=== PATIENT | male | born 1935 | race Caucasian/White ===

== ENCOUNTER 2016-08-26 16:09 | Observation (INO) ==
[2016-08-26 16:36] LABS: Basophils % 0.2 %; Immature Granulocytes % 0.4 % (0-4); Lymphocytes # 1.1 K/mcL (0.6-4.6); Lymphocytes % 9.5 %; Mean Corpuscular HGB Conc 34.9 g/dL (31.6-35.5); Mean Corpuscular Hemoglobin 31.3 pg (28.0-33.3); Mean Corpuscular Volume 89.6 fL (83.0-100.0); Monocytes # 1.4 K/mcL (0.0-1.3); Monocytes % 12.1 %; Neutrophils # 8.8 K/mcL (1.6-8.9); Platelet Count 107 K/mcL (140-400); Red Cell Distribution Width 13.1 % (11.5-14.5); Segmented Neutrophils % 77.8 %
[2016-08-26 16:39] LABS: ABG Base Excess -3.7 mEq/L (-2.0 to 3.0); ABG HCO3 20.3 mEQ/L (21-27); ABG PCO2 29 mmHg (35-45); ABG PH 7.45 pH Units (7.32-7.45); ABG PO2 64 mmHg (85-104); ABG TCO2 21.2 mEq/L (20-26)
[2016-08-26 16:40] LABS: ABG Oxygen Saturation 94 % (95-98)
--- NOTE | 2016-08-26 16:40 | Emergency Department Note ---
Disposition Clinical Impression: Dehydration Disposition: Admitted As Inpatient Condition: Good Referrals: Angelo Weir DO [Primary Care Provider] - Time of Disposition: 17:35 Altered Mental Status HPI - General Chief Complaint: ED Altered Mental Status Stated Complaint: low o2 sat Source: patient, family, EMS - History of Present Illness HPI Narrative: Patient presents to the emergency department for evaluation of generalized weakness. Spouse states that yesterday while they were riding in a car he began to complain of some epigastric discomfort and appeared to be somewhat diaphoretic. She states that they then went home he slept throughout most of the day. She states that he seemed to be somewhat confused throughout the afternoon yesterday though when specifically asked she states that he was always alert and oriented to person place and time though seemed to be somewhat generally weak. The symptoms persisted today as well. Patient complains of no pain at this time. He is alert and oriented to person place and time no he is somewhat slow to answer my questions. He denies headache or neck pain. He follows all commands appropriately. Patient and spouse denied any new medications. Spouse states that several days ago he was outside working quite a bit in the heat that he seemed to feel well that evening. - Related Data Home Medications Medication Instructions Recorded Confirmed Atenolol [Tenormin] 25 mg PO DAILY 08/26/16 08/26/16 Donepezil HCl [Aricept] 10 mg PO HS 08/26/16 08/26/16 Lisinopril [Zestril] 10 mg PO DAILY 08/26/16 08/26/16 Multivitamin [Multi-Day Vitamins] 1 each PO DAILY 08/26/16 08/26/16 [place]-3/Dha/Epa/Fish Oil [Fish Oil 2 each PO BID 08/26/16 08/26/16 1,000 mg Softgel] Rosuvastatin Calcium [Crestor] 5 mg PO DAILY 08/26/16 08/26/16 Allergies Allergy/AdvReac Type Severity Reaction Status Date / Time atorvastatin Allergy See Verified 08/26/16 16:41 Comments lovastatin Allergy Cramping Verified 08/26/16 16:41 of the Muscles rosuvastatin [From Crestor] Allergy Cramping Verified 08/26/16 16:41 of the Muscles Constitutional: Reports: weakness. Denies: fever, chills Eyes: Denies: eye pain, vision change ENT ED: Denies: ear pain Cardiovascular: Denies: chest pain, orthopnea, edema, syncope Respiratory: Denies: cough, dyspnea, wheezes, hemoptysis Gastrointestinal: Reports: abdominal pain (Yesterday the resolved currently). Denies: nausea, vomiting, diarrhea Genitourinary: Denies: urgency, dysuria, frequency, hematuria Musculoskeletal: Denies: back pain, neck pain Integumentary: Denies: rash Neurological: Denies: headache, numbness, paresthesias, confusion Psychiatric: Denies: anxiety, depression Endocrine: Denies: fatigue Allergic/Immunologic: Denies: urticaria, itchy eyes Past Medical History - Past Medical History Medical history: Reports: hyperlipidemia, hypertension Surgical history: Reports: cholecystectomy, other (Spouse states that he had a "brain bleed." By description sounds as if he had traumatic epidural hematoma that was surgically drained.) Psychiatric history: Reports: no psych history - Social History Smoking Status: Former smoker Smokeless Tobacco Status: No Alcohol use: Reports: none Drug use: Reports: none Physical Exam - General General appearance: alert, in no apparent distress - Head Head exam: atraumatic, normocephalic - Eye Eye exam: Present: normal appearance, PERRL, EOMI. Absent: scleral icterus - ENT ENT exam: mucous membranes dry, TM's normal bilaterally - Neck Neck exam: Present: normal inspection, full ROM. Absent: meningismus - Respiratory Respiratory exam: Present: normal lung sounds bilaterally - Cardiovascular Cardiovascular exam: Present: regular rate, normal rhythm, normal heart sounds - Abdominal Exam Abdominal exam: Present: soft, Non-Tender, normal bowel sounds. Absent: tenderness, distention, guarding, rebound, rigidity - Extremities Exam Extremities exam: Present: normal inspection, full ROM, normal capillary refill. Absent: tenderness, pedal edema, calf tenderness - Expanded Lower Extremity Exam Neurovascular/Tendon exam: Present: normal capillary refill. Absent: pulse deficit, motor deficit, sensory deficit - Back Exam Back exam: Absent: tenderness - Neurological Exam Neurological exam: Present: alert, oriented X3, CN II-XII intact. Absent: motor sensory deficit - Psychiatric Psychiatric exam: Present: normal affect, normal mood - Skin Skin exam: Present: warm, dry, intact, normal color Course Vital Signs Temperature 100.2 F H 08/26/16 16:13 Pulse Rate 77 08/26/16 16:13 Respiratory Rate 18 08/26/16 16:13 Blood Pressure 136/61 08/26/16 16:13 O2 Sat by Pulse Oximetry 95 08/26/16 16:13 Temperature 100.2 F H 08/26/16 16:13 Pulse Rate 77 08/26/16 17:10 Respiratory Rate 18 08/26/16 17:10 Blood Pressure 150/73 08/26/16 17:10 O2 Sat by Pulse Oximetry 94 08/26/16 17:10 Oxygen Delivery Oxygen Delivery Room Air Altered Mental Status - MDM Narrative Medical decision making narrative: Time 5:30 PM: Heart rate is 77, blood pressure 150/73, SPO2 is 97% on room air. Patient is resting comfortably alert oriented and appropriate without complaints. Continues to deny chest pain or shortness of breath. He has a normal neurologic exam. Laboratory evaluation reveals mild dehydration. He has a benign abdominal exam. Patient be admitted to the hospitalist service for ongoing evaluation and treatment. I discussed the case with Dr. Tirso Leon, he accepted the patient to this facility for ongoing evaluation and treatment. Secondary to his low-grade fever and slight lactic acidosis, he will be given Zosyn pending culture results. - Lab Data Lab results reviewed: Yes I reviewed the patient's lab results. Result diagrams: 08/26/16 16:20 08/26/16 16:20 Lab Results 08/26/16 08/26/16 08/26/16 Range/Units 16:18 16:20 16:20 WBC (4.3-11.1) K/mcL RBC (4.19-5.50) M/mcL Hgb (12.9-16.9) g/dL Hct (37.5-50.1) % MCV (83.0-100.0) fL MCH (28.0-33.3) pg MCHC (31.6-35.5) g/dL RDW (11.5-14.5) % Plt Count (140-400) K/mcL MPV (9.4-12.4) fL Immature Gran % (0-4) % Seg Neutrophils % % Lymphocytes % % Monocytes % % Eosinophils % % Basophils % % Neutrophils # (1.6-8.9) K/mcL Lymphocytes # (0.6-4.6) K/mcL Monocytes # (0.0-1.3) K/mcL Eosinophils # (0.0-0.6) K/mcL Basophils # (0.0-0.2) K/mcL PT 16.3 H (9.4-12.1) Seconds INR 1.5 APTT 37.2 H (26.0-36.0) Seconds ABG pH (7.32-7.45) pH Units ABG pCO2 (35-45) mmHg ABG pO2 (85-104) mmHg ABG HCO3 (21-27) mEQ/L ABG Total CO2 (20-26) mEq/L ABG O2 Saturation (95-98) % ABG Base Excess (-2.0 to 3.0) mEq/L Blood Gas Modality Sodium (136-145) mEq/L Potassium (3.5-4.5) mEq/L Chloride (98-109) mEq/L Carbon Dioxide (19-29) mEq/L BUN (8-26) mg/dL Creatinine (0.72-1.25) mg/dL Est GFR ( Amer) (> 60) Est GFR (Non-Af Amer) (> 60) BUN/Creatinine Ratio (6-26) Glucose (70-99) mg/dL Calculated Osmolality (280-300) Calcium (8.6-10.8) mg/dL Total Bilirubin 1.6 H (0.2-1.2) mg/dL Direct Bilirubin 0.6 H (0.0-0.5) mg/dL Indirect Bilirubin 1.0 (0.0-1.2) mg/dL AST 18 (5-34) Units/L ALT 20 (0-55) Units/L Alkaline Phosphatase 49 (38-126) Units/L Ammonia (18-72) mcmol/L Troponin I (0-0.03) ng/mL B-Natriuretic Peptide (0-100) pg/mL Serum Total Protein 6.5 (6.0-8.3) g/dL Albumin 3.6 (3.5-5.0) g/dL Globulin 2.9 (2.4-3.5) g/dL Albumin/Globulin Ratio 1.2 (1.1-2.2) Lipase 30 (8-78) Units/L Urine Color Dark Yellow (Yellow) Urine Clarity Clear (Clear) Urine pH 5.0 (5.0-8.0) pH Units Ur Specific [place] >= 1.030 H (1.010-1.025) Urine Protein 100 H (Neg-Trace) mg/dL Urine Glucose (UA) Normal (Normal) mg/dL Urine Ketones Trace H (Negative) mg/dL Urine Blood Moderate H (Negative) Urine Nitrite Negative (Negative) Urine Bilirubin Small H (Negative) Urine Urobilinogen Normal (Normal) mg/dL Ur Leukocyte Esterase Negative (Negative) 08/26/16 08/26/16 08/26/16 Range/Units 16:20 16:20 16:20 WBC 11.3 H (4.3-11.1) K/mcL RBC 4.80 (4.19-5.50) M/mcL Hgb 15.0 (12.9-16.9) g/dL Hct 43.0 (37.5-50.1) % MCV 89.6 (83.0-100.0) fL MCH 31.3 (28.0-33.3) pg MCHC 34.9 (31.6-35.5) g/dL RDW 13.1 (11.5-14.5) % Plt Count 107 L (140-400) K/mcL MPV 13.0 H (9.4-12.4) fL Immature Gran % 0.4 (0-4) % Seg Neutrophils % 77.8 % Lymphocytes % 9.5 % Monocytes % 12.1 % Eosinophils % 0.0 % Basophils % 0.2 % Neutrophils # 8.8 (1.6-8.9) K/mcL Lymphocytes # 1.1 (0.6-4.6) K/mcL Monocytes # 1.4 H (0.0-1.3) K/mcL Eosinophils # 0.0 (0.0-0.6) K/mcL Basophils # 0.0 (0.0-0.2) K/mcL PT (9.4-12.1) Seconds INR APTT (26.0-36.0) Seconds ABG pH (7.32-7.45) pH Units ABG pCO2 (35-45) mmHg ABG pO2 (85-104) mmHg ABG HCO3 (21-27) mEQ/L ABG Total CO2 (20-26) mEq/L ABG O2 Saturation (95-98) % ABG Base Excess (-2.0 to 3.0) mEq/L Blood Gas Modality Sodium 138 (136-145) mEq/L Potassium 4.6 H (3.5-4.5) mEq/L Chloride 106 (98-109) mEq/L Carbon Dioxide 22 (19-29) mEq/L BUN 22 (8-26) mg/dL Creatinine 1.64 H (0.72-1.25) mg/dL Est GFR ( Amer) 49 L (> 60) Est GFR (Non-Af Amer) 41 L (> 60) BUN/Creatinine Ratio 13 (6-26) Glucose 125 H (70-99) mg/dL Calculated Osmolality 291 (280-300) Calcium 10.5 (8.6-10.8) mg/dL Total Bilirubin (0.2-1.2) mg/dL Direct Bilirubin (0.0-0.5) mg/dL Indirect Bilirubin (0.0-1.2) mg/dL AST (5-34) Units/L ALT (0-55) Units/L Alkaline Phosphatase (38-126) Units/L Ammonia (18-72) mcmol/L Troponin I (0-0.03) ng/mL B-Natriuretic Peptide 136 H (0-100) pg/mL Serum Total Protein (6.0-8.3) g/dL Albumin (3.5-5.0) g/dL Globulin (2.4-3.5) g/dL Albumin/Globulin Ratio (1.1-2.2) Lipase (8-78) Units/L Urine Color (Yellow) Urine Clarity (Clear) Urine pH (5.0-8.0) pH Units Ur Specific [place] (1.010-1.025) Urine Protein (Neg-Trace) mg/dL Urine Glucose (UA) (Normal) mg/dL Urine Ketones (Negative) mg/dL Urine Blood (Negative) Urine Nitrite (Negative) Urine Bilirubin (Negative) Urine Urobilinogen (Normal) mg/dL Ur Leukocyte Esterase (Negative) 08/26/16 08/26/16 08/26/16 Range/Units 16:20 16:20 16:32 WBC (4.3-11.1) K/mcL RBC (4.19-5.50) M/mcL Hgb (12.9-16.9) g/dL Hct (37.5-50.1) % MCV (83.0-100.0) fL MCH (28.0-33.3) pg MCHC (31.6-35.5) g/dL RDW (11.5-14.5) % Plt Count (140-400) K/mcL MPV (9.4-12.4) fL Immature Gran % (0-4) % Seg Neutrophils % % Lymphocytes % % Monocytes % % Eosinophils % % Basophils % % Neutrophils # (1.6-8.9) K/mcL Lymphocytes # (0.6-4.6) K/mcL Monocytes # (0.0-1.3) K/mcL Eosinophils # (0.0-0.6) K/mcL Basophils # (0.0-0.2) K/mcL PT (9.4-12.1) Seconds INR APTT (26.0-36.0) Seconds ABG pH 7.45 (7.32-7.45) pH Units ABG pCO2 29 L (35-45) mmHg ABG pO2 64 L (85-104) mmHg ABG HCO3 20.3 L (21-27) mEQ/L ABG Total CO2 21.2 (20-26) mEq/L ABG O2 Saturation 94 L (95-98) % ABG Base Excess -3.7 L (-2.0 to 3.0) mEq/L Blood Gas Modality Room Air Sodium (136-145) mEq/L Potassium (3.5-4.5) mEq/L Chloride (98-109) mEq/L Carbon Dioxide (19-29) mEq/L BUN (8-26) mg/dL Creatinine (0.72-1.25) mg/dL Est GFR ( Amer) (> 60) Est GFR (Non-Af Amer) (> 60) BUN/Creatinine Ratio (6-26) Glucose (70-99) mg/dL Calculated Osmolality (280-300) Calcium (8.6-10.8) mg/dL Total Bilirubin (0.2-1.2) mg/dL Direct Bilirubin (0.0-0.5) mg/dL Indirect Bilirubin (0.0-1.2) mg/dL AST (5-34) Units/L ALT (0-55) Units/L Alkaline Phosphatase (38-126) Units/L Ammonia 19 (18-72) mcmol/L Troponin I 0.02 (0-0.03) ng/mL B-Natriuretic Peptide (0-100) pg/mL Serum Total Protein (6.0-8.3) g/dL Albumin (3.5-5.0) g/dL Globulin (2.4-3.5) g/dL Albumin/Globulin Ratio (1.1-2.2) Lipase (8-78) Units/L Urine Color (Yellow) Urine Clarity (Clear) Urine pH (5.0-8.0) pH Units Ur Specific [place] (1.010-1.025) Urine Protein (Neg-Trace) mg/dL Urine Glucose (UA) (Normal) mg/dL Urine Ketones (Negative) mg/dL Urine Blood (Negative) Urine Nitrite (Negative) Urine Bilirubin (Negative) Urine Urobilinogen (Normal) mg/dL Ur Leukocyte Esterase (Negative) ITS Impressions Chest X-Ray 08/26/16 16:18 IMPRESSION: No acute abnormalities detected. D/ / Adi Alexis MD / Adi Alexis MD Interpreting Provider: Adi Alexis MD Head CT 08/26/16 16:20 IMPRESSION: No acute intracranial abnormality. D/ / Marcello Bustillo MD / Marcello Bustillo MD Interpreting Provider: Marcello Bustillo MD - Radiology Data Radiology results reviewed: Yes I reviewed the patient's radiology results. - EKG Data EKG attestation: Yes I reviewed and interpreted this EKG. EKG shows normal: sinus rhythm (Sinus rhythm at a rate of 70 with sinus arrhythmia. Nonspecific changes without evidence of acute ST segment or T-wave change) TPA Checklist - LKW: 3-4.5 hrs Add. Warnings/Precautions Patient/family understanding: The patient/family members have been counseled and understood the risk, benefit , and alternatives of treatment.
[2016-08-26 16:42] LABS: INR 1.5; Prothrombin Time 16.3 Seconds (9.4-12.1)
[2016-08-26 16:45] LABS: Activated Partial Thrombo Time 37.2 Seconds (26.0-36.0)
[2016-08-26 16:50] LABS: Calcium 10.5 mg/dL (8.6-10.8); Potassium 4.6 mEq/L (3.5-4.5)
[2016-08-26 16:55] LABS: Albumin 3.6 g/dL (3.5-5.0); Albumin/Globulin Ratio 1.2 (1.1-2.2); Bilirubin,Direct 0.6 mg/dL (0.0-0.5); Bilirubin,Total 1.6 mg/dL (0.2-1.2); Globulin 2.9 g/dL (2.4-3.5); Total Protein 6.5 g/dL (6.0-8.3)
[2016-08-26 17:13] LABS: Bilirubin,Urine Small (Negative); Blood,Urine Moderate (Negative); Clarity,Urine Clear (Clear); Glucose,Urine (UA) Normal (Normal); Ketones,Urine Trace mg/dL (Negative); Leukocyte Esterase,Urine Negative (Negative); Nitrite,Urine Negative (Negative); Protein,Urine 100 mg/dL (Neg-Trace); Specific Gravity,Urine >= 1.030 (1.010-1.025); Urobilinogen,Urine Normal (Normal)
[2016-08-26 17:14] LABS: Color,Urine Dark Yellow (Yellow)
[2016-08-26 17:35] LABS: Amorphous Sediment,Urine Moderate (Few); Bacteria,Urine Many per hpf (None-Few); Granular Casts,Urine Few per lpf (None Seen); Mucus,Urine Many (Few); Squamous Epithelial Cell,Urine Few per lpf (None-Few); WBC,Urine 0-3 per hpf (0-3)
[2016-08-26] MEDS ORDERED: Piperacillin/Tazobactam 3.375 GM in D5% in Water (Mini-Bag+) 100 ML IVPB ONE (17:36)
[2016-08-26] MEDS: 0.9 % Sodium Chloride 1,000 ML IVC SCH (17:57)
[2016-08-26] MEDS ORDERED: Piperacillin/Tazobactam 3.375 GM in D5% in Water (Mini-Bag+) 100 ML IVPB SCH ×2 (18:00)
[2016-08-26] MEDS: (Omega-3/Dha/Epa/Fish Oil [Fish Oil 1,000 Mg Softgel]) PO SCH (21:12)
[2016-08-27] MEDS: Acetaminophen 325 MG TABLET PO PRN ×2 (01:07→08:06)
[2016-08-27] MEDS: Piperacillin/Tazobactam 3.375 GM in D5% in Water (Mini-Bag+) 100 ML IVPB SCH ×3 (02:36→18:40)
[2016-08-27 05:18] LABS: Basophils % 0.2 %; Hemoglobin 13.3 g/dL (12.9-16.9); Immature Granulocytes % 0.7 % (0-4); Lymphocytes # 1.5 K/mcL (0.6-4.6); Lymphocytes % 14.5 %; Mean Corpuscular HGB Conc 34.1 g/dL (31.6-35.5); Mean Corpuscular Hemoglobin 30.4 pg (28.0-33.3); Mean Corpuscular Volume 89.2 fL (83.0-100.0); Monocytes % 9.2 %; Neutrophils # 7.8 K/mcL (1.6-8.9); Platelet Count 102 K/mcL (140-400); Red Blood Count 4.37 M/mcL (4.19-5.50); Red Cell Distribution Width 13.1 % (11.5-14.5); Segmented Neutrophils % 75.4 %
[2016-08-27 05:36] LABS: Albumin 2.9 g/dL (3.5-5.0); Calcium 9.9 mg/dL (8.6-10.8); Phosphorous 2.1 mg/dL (2.3-4.7); Potassium 4.6 mEq/L (3.5-4.5); Potassium 4.7 mEq/L (3.5-4.5)
[2016-08-27] MEDS: (Omega-3/Dha/Epa/Fish Oil [Fish Oil 1,000 Mg Softgel]) PO SCH ×2 (08:00→21:48)
[2016-08-27] MEDS: Multivit/Ca/Min/Fe/FA 1 TAB TABLET PO SCH (08:05)
[2016-08-27] MEDS: 0.9 % Sodium Chloride 1,000 ML IVC SCH (08:18)
[2016-08-27] MEDS ORDERED: NON-FORMULARY MEDICATION 1 EACH EACH (Rosuvastatin Calcium [Crestor] 5 MG) PO SCH (09:00)
[2016-08-27 09:07] LABS: Bilirubin,Urine Small (Negative); Blood,Urine Trace-lysed (Negative); Clarity,Urine Slightly Cloudy (Clear); Color,Urine Dark Yellow (Yellow); Glucose,Urine (UA) Normal (Normal); Ketones,Urine Negative (Negative); Leukocyte Esterase,Urine Negative (Negative); Nitrite,Urine Negative (Negative); Protein,Urine 100 mg/dL (Neg-Trace); Specific Gravity,Urine >= 1.030 (1.010-1.025); Urobilinogen,Urine Normal (Normal)
[2016-08-27 09:43] LABS: Amorphous Sediment,Urine Few (Few); Bacteria,Urine Few per hpf (None-Few); Granular Casts,Urine Few per lpf (None Seen); Hyaline Casts,Urine Few per lpf (None-Few); Mucus,Urine Few (Few); Squamous Epithelial Cell,Urine Few per lpf (None-Few); WBC,Urine 0-3 per hpf (0-3)
--- NOTE | 2016-08-27 11:01 | Internal Med History&Physical ---
Date of Encounter: 08/27/16 Time of Encounter: 10:54 Assessment and Plan (1) Gram-negative bacteremia Current visit: Yes Status: Acute Pt with GNR bacteremia in 2/2 cultures along with sepsis. His exam is benign outside of abdominal tenderness and mild involuntary guarding. No rebound. Pt remains febrile. His portable CXR and head CT were benign. + mild lactic acidosis. There is no evidence of head/neck infection, pneumonia, skin infection , or UTI. Will continue pip/tazo, repeat lactic acid, repeat blood cultures, obtain 2v CXR, and order renal-dosed STAT CT abd/pelvis with IV and PO contrast given concern for intra-abdominal etiology. There is no evidence perforation or surgical abdomen at this time. Radiologist is aware of mild ARF and need for IV contrast in this study. Pt has been receiving IVFs overnight. Patient and family are aware of plan. (2) Acute renal failure Current visit: Yes Status: Acute Mild. Resolving. Will continue IVFs and monitor. Qualifiers: Acute renal failure type: unspecified Qualified Code(s): N17.9 - Acute kidney failure, unspecified (3) Lactic acidosis Current visit: Yes Status: Acute (4) Sepsis Current visit: Yes Status: Acute Qualifiers: Sepsis type: Escherichia coli Qualified Code(s): A41.51 - Sepsis due to Escherichia coli [E. coli] (5) Altered mental status Current visit: No Status: Acute No focal exam. Etiology likely underlying infection. Will monitor. Qualifiers: Altered mental status type: somnolence Qualified Code(s): R40.0 - Somnolence (6) Dehydration Current visit: Yes Status: Acute Internal Medicine - H&P: HPI Chief complaint: AMS, abdominal pain Admitted From: Emergency Dept Plans for Post Hospital Care: Home History of present illness: Mr. Pemberton is a 80 year old male that presented to ED yesterday with 1 day history of abdominal discomfort and sedation. Family notes that patient rarely complains about pain or not feeling well. He began to note an upset stomach with some abdominal pain when asked, but continued to state that he felt fine and did not want to go to the ED for evaluation. He became progressively drowsy and not acting like himself. Patient was denying cough, colored sputum, change in BMs, rash, urinary burning, ear, throat, or sinus pain, or rash. On the next day, family had patient taken to ED for evaluation. Patient was found to have ARF and low grade fever in ED. Portable CXR and UA benign. Blood cultures sent. Pt was placed on IVFs and pip/tazo and admitted to the med-surg unit for further evaluation. Upon evaluation this AM, pt states that he feels fine. He continues to remain sedated and drowsy. Family notes that he is not acting like his normal self. Past Med Surg Social Fam HX - Past Medical History Medical history: hyperlipidemia, hypertension Psychiatric history: no psych history - Past Surgical History Surgical History: cholecystectomy, other - Social History Smoking Status: Former smoker Smokeless Tobacco Status: No Alcohol use: none Drug use: none Internal Medicine - H&P: Meds Atenolol [Tenormin] 25 mg PO DAILY 08/26/16 [History] Donepezil HCl [Aricept] 10 mg PO HS 08/26/16 [History] Lisinopril [Zestril] 10 mg PO DAILY 08/26/16 [History] Multivitamin [Multi-Day Vitamins] 1 each PO DAILY 08/26/16 [History] [place]-3/Dha/Epa/Fish Oil [Fish Oil 1,000 mg Softgel] 2 each PO BID 08/26/16 [ History] Rosuvastatin Calcium [Crestor] 5 mg PO DAILY 08/26/16 [History] Allergies atorvastatin Allergy (Verified 08/26/16 16:41) See Comments myalgia lovastatin Allergy (Verified 08/26/16 16:41) Cramping of the Muscles rosuvastatin [From Crestor] Allergy (Verified 08/26/16 16:41) Cramping of the Muscles All Systems PM: A 10-system review of systems was performed and is negative for pertinent findings except as documented above in the HPI. - Constitutional Vitals: Temp Pulse Resp BP Pulse Ox 100.3 F H 69 22 125/64 98 08/27/16 06:30 08/27/16 06:30 08/27/16 06:30 08/27/16 06:30 08/27/16 08:24 Exam: Gen: Lying in bed, NAD HEENT: NC, AT Neck: Trachea midline, no mass Pulm: No respiratory distress, CTAB CV: Normal S1 and S2, RRR Abdomen: Soft, ND, + generalized tenderness throughout without rebound, + mild involuntary guarding Ext: No C/C/E Neuro: No appreciable motor/sensor deficits Skin: Warm and dry, no rash Psych: drowsy, Ox3 Internal Med - H&P Results - Labs CBC & Chem 7: 08/27/16 04:52 08/27/16 04:52 Labs: Short CBC 08/27/16 Range/Units 04:52 WBC 10.3 (4.3-11.1) K/mcL Hgb 13.3 D (12.9-16.9) g/dL Hct 39.0 (37.5-50.1) % Plt Count 102 L (140-400) K/mcL Neutrophils # 7.8 (1.6-8.9) K/mcL BMP 08/27/16 08/27/16 04:52 04:52 Sodium 139 140 Potassium 4.6 H 4.7 H Chloride 107 107 Carbon Dioxide 23 23 BUN 25 25 Creatinine 1.52 H 1.57 H Glucose 118 H 120 H Calcium 9.9 10.0 Liver Function 08/27/16 Range/Units 04:52 Albumin 2.9 L (3.5-5.0) g/dL Urine 08/27/16 Range/Units 09:00 Urine Color Dark Yellow (Yellow) Urine Clarity Slightly Cloudy A (Clear) Urine pH 5.0 (5.0-8.0) pH Units Ur Specific [place] >= 1.030 H (1.010-1.025) Urine Protein 100 H (Neg-Trace) mg/dL Urine Glucose (UA) Normal (Normal) mg/dL
[2016-08-27 11:07] LABS: Acinetobacter baumannii by PCR Not Detected (Not Detect); Candida albicans by PCR Not Detected (Not Detect); Candida glabrata by PCR Not Detected (Not Detect); Candida krusei by PCR Not Detected (Not Detect); Candida parapsilosis by PCR Not Detected (Not Detect); Candida tropicalis by PCR Not Detected (Not Detect); Enterococcus by PCR Not Detected (Not Detect); Escherichia coli by PCR ***DETECTED*** (Not Detect); Klebsiella oxytoca by PCR Not Detected (Not Detect); Klebsiella pneumoniae by PCR Not Detected (Not Detect); Pseudomonas aeruginosa by PCR Not Detected (Not Detect); Serratia marcescens by PCR Not Detected (Not Detect); Staphylococcus aureus by PCR Not Detected (Not Detect); Streptococcus agalactiae(B)PCR Not Detected (Not Detect); Streptococcus by PCR Not Detected (Not Detect); Streptococcus pneumoniae PCR Not Detected (Not Detect); Streptococcus pyogenes (A) PCR Not Detected (Not Detect); blaKPC Carbapenem-Resist Gene Not Detected (Not Detect); mecA Methicillin-Resist Gene Not Detected (Not Detect); vanA/B Vancomycin-Resist Genes Not Detected (Not Detect)
--- NOTE | 2016-08-27 14:40 | Event Note ---
Date of Encounter: 08/27/16 Time of Encounter: 14:30 Patient was re-evaluated this afternoon. He remains somnolent, but is oriented x 3 and answering all questions appropriately. He complains only of being tired. No cough, SOB, diarrhea, constipation, rash, headache, stiff neck, rash or urinary symptoms. Temp 99.3 oral this afternoon. BP stable. His skin exam is normal. Abdomen remains slightly tender. Lungs are clear. Heart regular and without any murmur. No neck stiffness. Kernig and Brudzinski negative. His CT abd/pelvis negative outside of multiple hypodensities of liver up to 53 mm. CXR normal. Liver enzymes normal. Blood cultures positive for E. coli x 2. Urine culture pending. UA not consistent with infection. Discussed case with Dr. Dominguez in Infectious Disease. He felt source of E. coli bacteremia was likely translocation for bacteria into blood at the site of documented sigmoid diverticulosis documented on CT. He recommends continuing current pip/tazo. If E. coli fowler-sensitive, he recommends change antibiotic to 2g ceftriaxone IV q 24 hours. If organism resistant or patient has decline in status, he wishes to be called back. Repeat blood cultures recommended again in 48 hours. Given no heart murmur and GNR bacteria, echocardiogram not recommended currently. Hepatic hypodensities do not appear to be abscesses. If pt clinically improves with current treatment plan, they may be further evaluated by MRI as outpatient.
[2016-08-28] MEDS: 0.9 % Sodium Chloride 1,000 ML IVC SCH ×3 (03:55→22:09)
[2016-08-28] MEDS: Piperacillin/Tazobactam 3.375 GM in D5% in Water (Mini-Bag+) 100 ML IVPB SCH ×3 (04:22→18:04)
[2016-08-28 05:20] LABS: Basophils % 0.1 %; Eosinophils % 0.1 %; Hemoglobin 12.4 g/dL (12.9-16.9); Immature Granulocytes % 0.4 % (0-4); Lymphocytes # 1.5 K/mcL (0.6-4.6); Lymphocytes % 21.1 %; Mean Corpuscular HGB Conc 35.4 g/dL (31.6-35.5); Mean Corpuscular Hemoglobin 31.2 pg (28.0-33.3); Mean Corpuscular Volume 88.2 fL (83.0-100.0); Mean Platelet Volume 13.5 fL (9.4-12.4); Monocytes # 0.8 K/mcL (0.0-1.3); Monocytes % 11.6 %; Neutrophils # 4.6 K/mcL (1.6-8.9); Red Blood Count 3.97 M/mcL (4.19-5.50); Segmented Neutrophils % 66.7 %
[2016-08-28 05:36] LABS: Platelet Count 91 K/mcL (140-400)
[2016-08-28 05:43] LABS: Albumin 2.5 g/dL (3.5-5.0); BUN/Creatinine Ratio 16 (6-26); Blood Urea Nitrogen 18 mg/dL (8-26); Calcium 9.3 mg/dL (8.6-10.8); Carbon Dioxide 19 mEq/L (19-29); Chloride 108 mEq/L (98-109); Glucose 101 mg/dL (70-99); Osmolality,Calculated 286 (280-300); Phosphorous 1.5 mg/dL (2.3-4.7); Sodium 137 mEq/L (136-145); eGFR For African Americans > 60 (> 60); eGFR For Non-African Americans > 60 (> 60)
[2016-08-28] MEDS: Multivit/Ca/Min/Fe/FA 1 TAB TABLET PO SCH (08:07)
[2016-08-28] MEDS: (Omega-3/Dha/Epa/Fish Oil [Fish Oil 1,000 Mg Softgel]) PO SCH ×2 (08:08→22:10)
--- NOTE | 2016-08-28 11:35 | Internal Med Progress Note ---
Date of Encounter: 08/28/16 Time of Encounter: 11:30 - Assessment and plan (1) Gram-negative bacteremia Current Visit: Yes Status: Acute Assessment and plan: Pt with E. coli bacteremia by 2/2 blood cultures. Source not entirely clear, but possibly secondary to translocation of bacteria from his sigmoid diverticulosis. Urine culture negative. E. coli sensitivies pending. Recommend transition to 2g IV ceftriaxone q24h if organism is fowler-sensitive. Recommend blood cultures x 2 tomorrow to document resolution of bacteremia at 48 hours. If pt remains afebrile for 48 hours, clinically improved, and with negative repeat blood cultures, he may be transitioned to oral antibiotics. (2) Acute renal failure Current Visit: Yes Status: Resolved Assessment and plan: Resolved with IV fluids. Will monitor. Qualifiers: Acute renal failure type: unspecified Qualified Code(s): N17.9 - Acute kidney failure, unspecified (3) Lactic acidosis Current Visit: Yes Status: Resolved Assessment and plan: No evidence of bowel ischemic injury on CT. Will monitor. (4) Sepsis Current Visit: Yes Status: Resolved Assessment and plan: Resolved. Will continue current treatment regimen. Qualifiers: Sepsis type: Escherichia coli Qualified Code(s): A41.51 - Sepsis due to Escherichia coli [E. coli] (5) Altered mental status Current Visit: No Status: Acute Assessment and plan: Improving alertness with non-focal exam. Likely secondary to underlying infection. Will continue to monitor for improvement. Qualifiers: Altered mental status type: somnolence Qualified Code(s): R40.0 - Somnolence (6) Dehydration Current Visit: Yes Status: Resolved (7) Liver nodule Current Visit: Yes Status: Acute Assessment and plan: Multiple hepatic hypodensities up to 53mm documented by CT. These do not appear to be abscesses or source of infection at this time. If patient continues to clinically improve, hypodensities should be further evaluated as an outpatient. Patient and family aware. - Time Spent With Patient less than 15 minutes - Subjective Interval history: Pt is doing better overall and has been more awake and alert. He has been without acute complaints today. Last temp was 100.5 at 23:18 last evening. He has since been afebrile. Nurse without any concerns today. - Constitutional Vitals: Temp Pulse Resp BP Pulse Ox 98.6 F 88 20 122/67 96 08/28/16 10:38 08/28/16 10:38 08/28/16 10:38 08/28/16 10:38 08/28/16 10:38 Exam: Gen: Lying in bed, NAD HEENT: NC, AT Neck: Trachea midline, no mass Pulm: No respiratory distress, CTAB CV: Normal S1 and S2, RRR Abdomen: Soft, ND, NT Ext: No C/C/E Neuro: No appreciable motor/sensor deficits Skin: Warm and dry, no rash Psych: A&Ox3 Internal Medicine: Result - Labs CBC & Chem 7: 08/28/16 04:31 08/28/16 04:31 Labs: Short CBC 08/28/16 Range/Units 04:31 WBC 6.9 (4.3-11.1) K/mcL Hgb 12.4 L (12.9-16.9) g/dL Hct 35.0 L (37.5-50.1) % Plt Count 91 L (140-400) K/mcL Neutrophils # 4.6 (1.6-8.9) K/mcL BMP 08/28/16 04:31 Sodium 137 Potassium 4.0 Chloride 108 Carbon Dioxide 19 BUN 18 Creatinine 1.10 Glucose 101 H Calcium 9.3 Liver Function 08/28/16 Range/Units 04:31 Albumin 2.5 L (3.5-5.0) g/dL - ABG Interpretation ABG results: ABG ABG pH 7.45 pH Units (7.32-7.45) 08/26/16 16:32 ABG pCO2 29 mmHg (35-45) L 08/26/16 16:32 ABG pO2 64 mmHg (85-104) L 08/26/16 16:32 ABG O2 Saturation 94 % (95-98) L 08/26/16 16:32 PT/INR, D-dimer PT 16.3 Seconds (9.4-12.1) H 08/26/16 16:20 - Impressions Impressions Abdomen/Pelvis CT 08/27/16 10:49 IMPRESSION: 1. No acute finding to account for patient's abdominal pain. There are multiple hypodensities in the liver, ranging in size from 5 mm to 53 mm, for which liver MRI would be more specific. 2. Sigmoid diverticulosis. No evidence of diverticulitis. D/ / 08/27/2016 13:23:44 Jean Paul Lincoln MD / william Interpreting Provider: Jean Paul Lincoln MD Chest X-Ray 08/27/16 10:49 IMPRESSION: Clear lungs. No acute abnormality. D/ / Aurelio Us MD / Aurelio Us MD Interpreting Provider: Aurelio Us MD Consult Discharge Plan - Plan
[2016-08-29] MEDS: Piperacillin/Tazobactam 3.375 GM in D5% in Water (Mini-Bag+) 100 ML IVPB SCH (02:33)
[2016-08-29 06:47] LABS: Basophils % 0.2 %; Eosinophils % 0.6 %; Hematocrit 34.6 % (37.5-50.1); Hemoglobin 12.1 g/dL (12.9-16.9); Immature Granulocytes % 0.6 % (0-4); Lymphocytes # 1.3 K/mcL (0.6-4.6); Mean Corpuscular Hemoglobin 30.6 pg (28.0-33.3); Mean Corpuscular Volume 87.4 fL (83.0-100.0); Mean Platelet Volume 12.7 fL (9.4-12.4); Monocytes # 0.6 K/mcL (0.0-1.3); Monocytes % 11.6 %; Neutrophils # 3.4 K/mcL (1.6-8.9); Platelet Count 101 K/mcL (140-400); Red Blood Count 3.96 M/mcL (4.19-5.50)
[2016-08-29 07:00] LABS: Albumin 2.5 g/dL (3.5-5.0); BUN/Creatinine Ratio 12 (6-26); Blood Urea Nitrogen 12 mg/dL (8-26); Calcium 9.2 mg/dL (8.6-10.8); Carbon Dioxide 19 mEq/L (19-29); Chloride 110 mEq/L (98-109); Glucose 112 mg/dL (70-99); Osmolality,Calculated 289 (280-300); Phosphorous 1.6 mg/dL (2.3-4.7); Potassium 3.6 mEq/L (3.5-4.5); Sodium 139 mEq/L (136-145); eGFR For African Americans > 60 (> 60); eGFR For Non-African Americans > 60 (> 60)
[2016-08-29] MEDS: (Omega-3/Dha/Epa/Fish Oil [Fish Oil 1,000 Mg Softgel]) PO SCH (09:39)
[2016-08-29 10:49] VITALS: BP 155/77
--- NOTE | 2016-08-29 11:03 | Discharge Summary ---
Date of Encounter: 08/29/16 Time of Encounter: 10:50 - Discharge Diagnosis (1) Sepsis Priority: Primary Status: Resolved Qualifiers: Sepsis type: Escherichia coli Qualified Code(s): A41.51 - Sepsis due to Escherichia coli [E. coli] (2) Acute renal failure Priority: Secondary Status: Resolved Qualifiers: Acute renal failure type: unspecified Qualified Code(s): N17.9 - Acute kidney failure, unspecified (3) Liver nodule Priority: Secondary Status: Acute - Discharge Medications Prescriptions: Amoxicillin/Clavulanate [Augmentin] 875 mg PO BIDWM #6 tablet Lactobacillus [Culturelle] 1 each PO BID #6 cap.sprink Home Medications: Atenolol [Tenormin] 25 mg PO DAILY 08/26/16 [History] Donepezil HCl [Aricept] 10 mg PO HS 08/26/16 [History] Multivitamin [Multi-Day Vitamins] 1 each PO DAILY 08/26/16 [History] [place]-3/Dha/Epa/Fish Oil [Fish Oil 1,000 mg Softgel] 2 each PO BID 08/26/16 [ History] Rosuvastatin Calcium [Crestor] 5 mg PO DAILY 08/26/16 [History] Amoxicillin/Clavulanate [Augmentin] 875 mg PO BIDWM #6 tablet 08/29/16 [Rx] Lactobacillus [Culturelle] 1 each PO BID #6 cap.sprink 08/29/16 [Rx] Allergies/Adverse Reactions: Allergies atorvastatin Allergy (Verified 08/26/16 16:41) See Comments myalgia lovastatin Allergy (Verified 08/26/16 16:41) Cramping of the Muscles rosuvastatin [From Crestor] Allergy (Verified 08/26/16 16:41) Cramping of the Muscles Procedures/tests Complete & Pending: Procedures Performed prior 72 hours Category Date Time Status CT abd pelvis w iv and oral [CT] Stat Cat Scan 08/27/16 10:49 Draft Date of admission: 08/26/16 17:50 Primary care physician: Angelo Weir DO - Patient Status Disposition: Home, Self-Care Condition: Good Overall status at discharge: patient is progressing back to baseline - Discharge Instructions Follow Up With: Angelo Weir DO [Primary Care Provider] - 1 week Forms: ED Satisfaction Letter - Diet and Activity Activity: resume usual activities as tolerated Diet: advance to your usual diet Hospital course: Mr. Pemberton is a 80 year old male that presented to ED 08/26/2016 with 1 day history of abdominal discomfort and sedation. He became progressively drowsy and not acting like himself. Family had patient taken to ED for evaluation. Patient was found to have ARF and low grade fever in ED. Portable CXR and UA benign. Blood cultures sent. Pt was placed on IVFs and pip/tazo and admitted to the med-surg unit for further evaluation. Initial orders were written by the emergency room physician. Dr. Tirso Leon covered for me and performed a history and physical on August 27. He was started on IV Zosyn. Escherichia coli was identified in 2/2 blood cultures. He had good clinical response with normalization of WBC by the morning after admission. The leukocytosis left shift resolved by day of discharge. He was given IV fluids and his potassium level returned to normal. Azotemia resolved with creatinine decreasing to 1.01 by day of discharge with estimated GFR greater than 60. Lisinopril was held on admission and will continue to be held at discharge. He will continue atenolol. Phosphorus returned low at 2.1. He was given Neutra-Phos on August 28. CT of abdomen and pelvis was done on August 27 to further evaluate abdominal pain. It showed multiple hypodensities in the liver up to 53 mm diameter. A liver MRI was suggested to give more detail to the lesions. His PCP can order this as an outpatient. On August 29 he was stable for discharge home. He will continue with antibiotic and probiotics for 3 additional days at discharge. - Time Spent with Patient Total time spent providing and/or coordinating discharge services: - Constitutional Vitals: Temp Pulse Resp BP Pulse Ox 98.2 F 74 16 155/77 98 08/29/16 10:48 08/29/16 10:48 08/29/16 10:48 08/29/16 10:48 08/29/16 10:48
--- NOTE | 2016-08-29 12:53 | Electrocardiograph Report ---
[address] [address] Test Date: 2016-08-26 Pat Name: Joe Pemberton Department: [id number] Room: [facility] Gender: M [employer] First Officer: [id number] : 1935 Requested By: Gilmer Pugh Order Number: [id number] Reading MD: Yvon Hartley MD Measurements Intervals [place] Rate: 70 P: 69 NE: 165 QRS: -20 QRSD: 97 T: 8 QT: 339 QTc: 360 Interpretive Statements SINUS RHYTHM WITH SINUS ARRHYTHMIA Electronically Signed On 08-29-2016 12:51:47 EDT by Yvon Hartley MD
== END 2016-08-29 12:05 | disposition home or self-care (01) ==
LOC: EMEROOPIK 16:09 → INPPIK 16:09
PROVIDERS: ADMIT Internal Medicine; ATTEND Internal Medicine

== ENCOUNTER 2020-04-23 11:56 | Inpatient (IN) ==
[2020-04-23] MEDS ORDERED: 0.9 % Sodium Chloride 1,000 ML IVC ONE (12:07)
[2020-04-23 12:18] LABS: Bilirubin,Urine Negative (Negative); Blood,Urine Trace-intact (Negative); Clarity,Urine Clear (Clear); Color,Urine Yellow (Yellow); Glucose,Urine (UA) Normal (Normal); Ketones,Urine Negative (Negative); Leukocyte Esterase,Urine Negative (Negative); Nitrite,Urine Negative (Negative); Protein,Urine Negative (Neg-Trace); Specific Gravity,Urine 1.025 (1.010-1.025); Urobilinogen,Urine Normal (Normal)
[2020-04-23 12:27] LABS: Mucus,Urine Few per lpf (None-Few); RBC,Urine 0-3 per hpf (0-3)
[2020-04-23] MEDS ORDERED: Azithromycin 500 MG in 0.9 % Sodium Chloride 250 ML IVPB ONE (12:37)
[2020-04-23 12:44] LABS: Basophils % 0.4 %; Hematocrit 42.9 % (37.5-50.1); Hemoglobin 14.5 g/dL (12.9-16.9); Immature Granulocytes % 0.4 % (0-4); Lymphocytes # 0.8 K/mcL (0.6-4.6); Lymphocytes % 9.9 %; Mean Corpuscular HGB Conc 33.8 g/dL (31.6-35.5); Mean Corpuscular Hemoglobin 30.1 pg (28.0-33.3); Mean Corpuscular Volume 89.2 fL (83.0-100.0); Mean Platelet Volume 12.2 fL (9.4-12.4); Monocytes # 0.8 K/mcL (0.0-1.3); Monocytes % 9.8 %; Neutrophils # 6.4 K/mcL (1.6-8.9); Platelet Count 135 K/mcL (140-400); Red Blood Count 4.81 M/mcL (4.19-5.50); Red Cell Distribution Width 13.2 % (11.5-14.5); Segmented Neutrophils % 79.5 %; White Blood Count 8.1 K/mcL (4.3-11.1)
[2020-04-23 12:52] LABS: INR 1.4; Prothrombin Time 15.6 Seconds (9.4-12.1)
[2020-04-23 12:55] LABS: Activated Partial Thrombo Time 38.1 Seconds (26.0-36.0)
[2020-04-23 13:04] LABS: Alanine Aminotransferase 14 Units/L (7-52); Albumin 3.9 g/dL (3.5-5.7); Albumin/Globulin Ratio 1.6 (1.1-2.2); Alkaline Phosphatase 57 Units/L (34-104); Aspartate Amino Transferase 20 Units/L (13-39); BUN/Creatinine Ratio 14 (6-26); Bilirubin,Direct 0.2 mg/dL (0.0-0.2); Bilirubin,Indirect 1.3 mg/dL (0.0-1.0); Bilirubin,Total 1.5 mg/dL (0.3-1.0); Blood Urea Nitrogen 17 mg/dL (8-23); Calcium 9.6 mg/dL (8.6-10.3); Carbon Dioxide 23 mEq/L (23-29); Chloride 106 mEq/L (98-107); Globulin 2.5 g/dL (2.4-3.5); Glucose 111 mg/dL (70-105); Magnesium 1.7 mg/dL (1.6-2.6); Osmolality,Calculated 284 (280-300); Phosphorous 1.6 mg/dL (2.7-4.5); Potassium 4.4 mEq/L (3.5-5.1); Sodium 136 mEq/L (136-145); Total Protein 6.4 g/dL (6.4-8.9); Troponin I < 0.03 ng/mL (< 0.04); eGFR For African Americans > 60 (> 60); eGFR For Non-African Americans 56 (> 60)
[2020-04-23] MEDS ORDERED: Naloxone 0.4 MG/ML INJ IVP PRN (13:52)
[2020-04-23] MEDS ORDERED: Ondansetron ODT 4 MG TAB.RAPDIS SL PRN (13:52)
[2020-04-23] MEDS ORDERED: MOM Conc 10 ML UD.LIQ PO PRN (13:52)
[2020-04-23] MEDS ORDERED: Melatonin 3 MG TABLET PO PRN (13:52)
[2020-04-23] MEDS: Ringers Solution, Lactated 1,000 ML IVC SCH (18:19)
[2020-04-24] MEDS: Ringers Solution, Lactated 1,000 ML IVC SCH ×3 (05:53→17:50)
[2020-04-24 06:41] LABS: Basophils % 0.5 %; Eosinophils % 0.1 %; Hematocrit 38.2 % (37.5-50.1); Hemoglobin 12.8 g/dL (12.9-16.9); Immature Granulocytes % 0.5 % (0-4); Lymphocytes # 1.7 K/mcL (0.6-4.6); Lymphocytes % 18.6 %; Mean Corpuscular HGB Conc 33.5 g/dL (31.6-35.5); Mean Corpuscular Volume 89.7 fL (83.0-100.0); Mean Platelet Volume 12.4 fL (9.4-12.4); Monocytes % 11.3 %; Neutrophils # 6.1 K/mcL (1.6-8.9); Platelet Count 114 K/mcL (140-400); Red Blood Count 4.26 M/mcL (4.19-5.50); Red Cell Distribution Width 13.3 % (11.5-14.5); White Blood Count 8.9 K/mcL (4.3-11.1)
[2020-04-24 07:04] LABS: Alanine Aminotransferase 10 Units/L (7-52); Albumin 3.2 g/dL (3.5-5.7); Albumin/Globulin Ratio 1.3 (1.1-2.2); Alkaline Phosphatase 45 Units/L (34-104); Aspartate Amino Transferase 14 Units/L (13-39); BUN/Creatinine Ratio 14 (6-26); Bilirubin,Total 1.7 mg/dL (0.3-1.0); Blood Urea Nitrogen 17 mg/dL (8-23); Calcium 9.1 mg/dL (8.6-10.3); Carbon Dioxide 23 mEq/L (23-29); Chloride 107 mEq/L (98-107); Globulin 2.4 g/dL (2.4-3.5); Glucose 110 mg/dL (70-105); Osmolality,Calculated 286 (280-300); Sodium 137 mEq/L (136-145); Total Protein 5.6 g/dL (6.4-8.9); eGFR For African Americans > 60 (> 60); eGFR For Non-African Americans 56 (> 60)
[2020-04-24] MEDS: Acetaminophen 325 MG TABLET PO PRN ×2 (08:54→20:39)
[2020-04-24] MEDS ORDERED: Ergocalciferol (VIT D2) 50,000 UNIT (1.25MG) CAP PO SCH ×2 (09:45→12:00)
[2020-04-24] MEDS: levoFLOXacin 750 MG/150 ML 750 MG/150 ML BAG IVPB SCH (10:33)
[2020-04-24] MEDS: Cyanocobalamin (B-12) 1,000 MCG TABLET PO SCH (11:59)
[2020-04-24] MEDS ORDERED: cefTRIAXone 1,000 MG in 0.9 % Sodium Chloride Mini Bag 100 ML IVPB SCH (14:00)
[2020-04-24] MEDS ORDERED: Azithromycin 500 MG in 0.9 % Sodium Chloride 250 ML IVPB SCH (14:00)
[2020-04-24] MEDS ORDERED: *HR* LORazepam 2 MG/ML VIAL IVP PRN (18:22)
[2020-04-25 08:06] LABS: Magnesium 1.8 mg/dL (1.6-2.6); Phosphorous 1.9 mg/dL (2.7-4.5)
[2020-04-25] MEDS: levoFLOXacin 750 MG/150 ML 750 MG/150 ML BAG IVPB SCH (08:26)
[2020-04-25] MEDS: Cyanocobalamin (B-12) 1,000 MCG TABLET PO SCH (08:26)
[2020-04-26 07:18] LABS: Basophils % 0.3 %; Eosinophils % 0.3 %; Hematocrit 37.6 % (37.5-50.1); Hemoglobin 12.7 g/dL (12.9-16.9); Immature Granulocytes % 0.5 % (0-4); Lymphocytes # 1.2 K/mcL (0.6-4.6); Lymphocytes % 15.8 %; Mean Corpuscular HGB Conc 33.8 g/dL (31.6-35.5); Mean Corpuscular Hemoglobin 30.1 pg (28.0-33.3); Mean Corpuscular Volume 89.1 fL (83.0-100.0); Monocytes # 0.9 K/mcL (0.0-1.3); Monocytes % 11.5 %; Neutrophils # 5.3 K/mcL (1.6-8.9); Platelet Count 112 K/mcL (140-400); Red Blood Count 4.22 M/mcL (4.19-5.50); Red Cell Distribution Width 12.9 % (11.5-14.5); Segmented Neutrophils % 71.6 %; White Blood Count 7.4 K/mcL (4.3-11.1)
[2020-04-26 07:59] LABS: BUN/Creatinine Ratio 14 (6-26); Blood Urea Nitrogen 15 mg/dL (8-23); Calcium 9.1 mg/dL (8.6-10.3); Carbon Dioxide 26 mEq/L (23-29); Chloride 103 mEq/L (98-107); Glucose 102 mg/dL (70-105); Osmolality,Calculated 279 (280-300); Potassium 4.1 mEq/L (3.5-5.1); Sodium 134 mEq/L (136-145); eGFR For African Americans > 60 (> 60); eGFR For Non-African Americans > 60 (> 60)
[2020-04-26] MEDS: levoFLOXacin 750 MG/150 ML 750 MG/150 ML BAG IVPB SCH (09:42)
[2020-04-26] MEDS: Cyanocobalamin (B-12) 1,000 MCG TABLET PO SCH (09:42)
[2020-04-27] MEDS: Cyanocobalamin (B-12) 1,000 MCG TABLET PO SCH (08:26)
[2020-04-27] MEDS: levoFLOXacin 750 MG/150 ML 750 MG/150 ML BAG IVPB SCH (08:26)
[2020-04-27 08:30] LABS: BUN/Creatinine Ratio 13 (6-26); Blood Urea Nitrogen 16 mg/dL (8-23); Calcium 9.4 mg/dL (8.6-10.3); Carbon Dioxide 27 mEq/L (23-29); Chloride 104 mEq/L (98-107); Glucose 106 mg/dL (70-105); Osmolality,Calculated 284 (280-300); Phosphorous 2.4 mg/dL (2.7-4.5); Potassium 4.3 mEq/L (3.5-5.1); Sodium 136 mEq/L (136-145); eGFR For African Americans > 60 (> 60); eGFR For Non-African Americans 56 (> 60)
[2020-04-27] MEDS ORDERED: OLANZapine 5 MG TAB.RAPDIS PO PRN ×2 (09:10→09:11)
[2020-04-27] MEDS ORDERED: Perflutren Lipid Microsphere 1.3 ML in 0.9 % Sodium Chloride 8.7 ML IVP PRN (15:11)
[2020-04-27] MEDS: *HR* Enoxaparin 40 MG/0.4 ML SYRINGE SQ SCH (15:57)
[2020-04-28] MEDS: *HR* Enoxaparin 40 MG/0.4 ML SYRINGE SQ SCH (05:11)
[2020-04-28 06:28] VITALS: BP 142/74
[2020-04-28] MEDS: Cyanocobalamin (B-12) 1,000 MCG TABLET PO SCH (08:06)
[2020-04-28] MEDS ORDERED: cefTRIAXone 2,000 MG in 0.9 % Sodium Chloride Mini Bag 100 ML IVPB SCH (09:30)
== END 2020-04-28 16:25 | DRG 193 ==
LOC: INPPIK 11:56 → EMEROOPIK 11:56 → INPPIK 15:21
PROVIDERS: ADMIT Family Medicine; ATTEND Family Medicine

== ENCOUNTER 2020-04-28 11:28 | Inpatient (IN) ==
[2020-04-28] MEDS ORDERED: Acetaminophen 325 MG TABLET PO PRN (15:52)
[2020-04-28] MEDS ORDERED: Perflutren Lipid Microsphere 1.3 ML in 0.9 % Sodium Chloride 8.7 ML IVP PRN (15:59)
[2020-04-28] MEDS: Melatonin 3 MG TABLET PO PRN (21:35)
[2020-04-29] MEDS: *HR* Enoxaparin 40 MG/0.4 ML SYRINGE SQ SCH (05:30)
[2020-04-29 07:48] LABS: Alanine Aminotransferase 17 Units/L (7-52); Albumin 3.1 g/dL (3.5-5.7); Albumin/Globulin Ratio 1.2 (1.1-2.2); Alkaline Phosphatase 49 Units/L (34-104); Aspartate Amino Transferase 18 Units/L (13-39); BUN/Creatinine Ratio 15 (6-26); Bilirubin,Total 0.7 mg/dL (0.3-1.0); Blood Urea Nitrogen 17 mg/dL (8-23); Calcium 9.3 mg/dL (8.6-10.3); Carbon Dioxide 28 mEq/L (23-29); Chloride 106 mEq/L (98-107); Globulin 2.6 g/dL (2.4-3.5); Glucose 102 mg/dL (70-105); Osmolality,Calculated 290 (280-300); Phosphorous 2.7 mg/dL (2.7-4.5); Potassium 4.2 mEq/L (3.5-5.1); Sodium 139 mEq/L (136-145); Total Protein 5.7 g/dL (6.4-8.9); eGFR For African Americans > 60 (> 60); eGFR For Non-African Americans > 60 (> 60)
[2020-04-29] MEDS ORDERED: Sennosides/Docusate Sodium TABLET PO PRN (08:21)
[2020-04-29] MEDS ORDERED: CefTRIAXone 1,000 MG VIAL IVPB SCH (09:00)
[2020-04-29] MEDS: Cyanocobalamin (B-12) 1,000 MCG TABLET PO SCH (09:26)
[2020-04-29] MEDS: cefTRIAXone 2,000 MG in Water for inj. (sterile) 20 ML IVP SCH (09:26)
[2020-04-29] MEDS: Lisinopril-HCTZ 20-12.5mg TABLET PO SCH (09:26)
[2020-04-29] MEDS: Melatonin 3 MG TABLET PO PRN (22:07)
[2020-04-30] MEDS: *HR* Enoxaparin 40 MG/0.4 ML SYRINGE SQ SCH (06:37)
[2020-04-30] MEDS: cefTRIAXone 2,000 MG in Water for inj. (sterile) 20 ML IVP SCH (10:23)
[2020-04-30] MEDS: Lisinopril-HCTZ 20-12.5mg TABLET PO SCH (10:24)
[2020-04-30] MEDS: Cyanocobalamin (B-12) 1,000 MCG TABLET PO SCH (10:24)
[2020-05-01] MEDS: *HR* Enoxaparin 40 MG/0.4 ML SYRINGE SQ SCH (06:07)
[2020-05-01] MEDS: cefTRIAXone 2,000 MG in Water for inj. (sterile) 20 ML IVP SCH (08:24)
[2020-05-01] MEDS: Cyanocobalamin (B-12) 1,000 MCG TABLET PO SCH (08:24)
[2020-05-01] MEDS: Lisinopril-HCTZ 20-12.5mg TABLET PO SCH (08:24)
[2020-05-01] MEDS: Ergocalciferol (VIT D2) 50,000 UNIT (1.25MG) CAP PO SCH (08:34)
[2020-05-01 10:57] LABS: Alanine Aminotransferase 26 Units/L (7-52); Albumin 3.3 g/dL (3.5-5.7); Albumin/Globulin Ratio 1.1 (1.1-2.2); Alkaline Phosphatase 53 Units/L (34-104); Aspartate Amino Transferase 27 Units/L (13-39); BUN/Creatinine Ratio 14 (6-26); Bilirubin,Total 0.3 mg/dL (0.3-1.0); Blood Urea Nitrogen 17 mg/dL (8-23); Calcium 9.9 mg/dL (8.6-10.3); Carbon Dioxide 29 mEq/L (23-29); Chloride 105 mEq/L (98-107); Globulin 2.9 g/dL (2.4-3.5); Glucose 91 mg/dL (70-105); Osmolality,Calculated 293 (280-300); Potassium 4.2 mEq/L (3.5-5.1); Sodium 141 mEq/L (136-145); Total Protein 6.2 g/dL (6.4-8.9); eGFR For African Americans > 60 (> 60); eGFR For Non-African Americans 58 (> 60)
[2020-05-02] MEDS: *HR* Enoxaparin 40 MG/0.4 ML SYRINGE SQ SCH (06:38)
[2020-05-02] MEDS: cefTRIAXone 2,000 MG in Water for inj. (sterile) 20 ML IVP SCH (08:40)
[2020-05-02] MEDS: Cyanocobalamin (B-12) 1,000 MCG TABLET PO SCH (08:40)
[2020-05-02] MEDS: lisinopriL 20 MG TABLET PO SCH (08:40)
[2020-05-02] MEDS: Melatonin 3 MG TABLET PO PRN (20:18)
[2020-05-03] MEDS: *HR* Enoxaparin 40 MG/0.4 ML SYRINGE SQ SCH (05:31)
[2020-05-03] MEDS: Cyanocobalamin (B-12) 1,000 MCG TABLET PO SCH (08:20)
[2020-05-03] MEDS: cefTRIAXone 2,000 MG in Water for inj. (sterile) 20 ML IVP SCH (08:20)
[2020-05-03] MEDS: lisinopriL 20 MG TABLET PO SCH (08:20)
[2020-05-03] MEDS: Melatonin 3 MG TABLET PO PRN (21:30)
[2020-05-03] MEDS: OLANZapine 5 MG TAB.RAPDIS PO PRN (21:30)
[2020-05-04] MEDS: *HR* Enoxaparin 40 MG/0.4 ML SYRINGE SQ SCH (05:04)
[2020-05-04] MEDS: Cyanocobalamin (B-12) 1,000 MCG TABLET PO SCH (08:40)
[2020-05-04] MEDS: cefTRIAXone 2,000 MG in Water for inj. (sterile) 20 ML IVP SCH (08:40)
[2020-05-04] MEDS: lisinopriL 20 MG TABLET PO SCH (08:40)
[2020-05-04] MEDS: Melatonin 3 MG TABLET PO PRN (20:51)
[2020-05-05] MEDS: *HR* Enoxaparin 40 MG/0.4 ML SYRINGE SQ SCH (05:58)
[2020-05-05 07:18] LABS: Basophils # 0.1 K/mcL (0.0-0.2); Basophils % 0.9 %; Eosinophils # 0.2 K/mcL (0.0-0.6); Eosinophils % 2.9 %; Hematocrit 43.2 % (37.5-50.1); Hemoglobin 14.1 g/dL (12.9-16.9); Immature Granulocytes % 1.1 % (0-4); Lymphocytes # 1.9 K/mcL (0.6-4.6); Lymphocytes % 34.9 %; Mean Corpuscular HGB Conc 32.6 g/dL (31.6-35.5); Mean Corpuscular Hemoglobin 29.7 pg (28.0-33.3); Mean Corpuscular Volume 91.1 fL (83.0-100.0); Mean Platelet Volume 11.8 fL (9.4-12.4); Monocytes # 0.5 K/mcL (0.0-1.3); Neutrophils # 2.8 K/mcL (1.6-8.9); Platelet Count 252 K/mcL (140-400); Red Blood Count 4.74 M/mcL (4.19-5.50); Red Cell Distribution Width 12.7 % (11.5-14.5); Segmented Neutrophils % 51.2 %; White Blood Count 5.5 K/mcL (4.3-11.1)
[2020-05-05 07:52] LABS: BUN/Creatinine Ratio 18 (6-26); Blood Urea Nitrogen 24 mg/dL (8-23); Calcium 9.6 mg/dL (8.6-10.3); Carbon Dioxide 30 mEq/L (23-29); Chloride 107 mEq/L (98-107); Glucose 104 mg/dL (70-105); Osmolality,Calculated 294 (280-300); Potassium 5.1 mEq/L (3.5-5.1); Sodium 140 mEq/L (136-145); eGFR For African Americans > 60 (> 60); eGFR For Non-African Americans 51 (> 60)
[2020-05-05] MEDS: cefTRIAXone 2,000 MG in Water for inj. (sterile) 20 ML IVP SCH (08:17)
[2020-05-05] MEDS: Cyanocobalamin (B-12) 1,000 MCG TABLET PO SCH (08:18)
[2020-05-05] MEDS: lisinopriL 20 MG TABLET PO SCH (08:18)
[2020-05-06] MEDS: *HR* Enoxaparin 40 MG/0.4 ML SYRINGE SQ SCH (05:11)
[2020-05-06] MEDS: Cyanocobalamin (B-12) 1,000 MCG TABLET PO SCH (08:08)
[2020-05-06] MEDS: lisinopriL 20 MG TABLET PO SCH (08:08)
[2020-05-06] MEDS: cefTRIAXone 2,000 MG in Water for inj. (sterile) 20 ML IVP SCH (08:08)
[2020-05-07] MEDS: *HR* Enoxaparin 40 MG/0.4 ML SYRINGE SQ SCH (05:36)
[2020-05-07] MEDS: lisinopriL 20 MG TABLET PO SCH (07:53)
[2020-05-07] MEDS: Cyanocobalamin (B-12) 1,000 MCG TABLET PO SCH (07:53)
[2020-05-07] MEDS: cefTRIAXone 2,000 MG in Water for inj. (sterile) 20 ML IVP SCH (07:53)
[2020-05-07] MEDS: Melatonin 3 MG TABLET PO PRN (20:22)
[2020-05-07] MEDS: OLANZapine 5 MG TAB.RAPDIS PO PRN (20:22)
[2020-05-08] MEDS: *HR* Enoxaparin 40 MG/0.4 ML SYRINGE SQ SCH (05:26)
[2020-05-08] MEDS: Cyanocobalamin (B-12) 1,000 MCG TABLET PO SCH (08:29)
[2020-05-08] MEDS: lisinopriL 20 MG TABLET PO SCH (08:29)
[2020-05-08] MEDS: Ergocalciferol (VIT D2) 50,000 UNIT (1.25MG) CAP PO SCH (09:08)
[2020-05-08 13:34] LABS: Calcium 10.1 mg/dL (8.6-10.3); Potassium 4.9 mEq/L (3.5-5.1)
[2020-05-08] MEDS: Melatonin 3 MG TABLET PO PRN (19:58)
[2020-05-09] MEDS: *HR* Enoxaparin 40 MG/0.4 ML SYRINGE SQ SCH (05:17)
[2020-05-09] MEDS: Cyanocobalamin (B-12) 1,000 MCG TABLET PO SCH (08:36)
[2020-05-09] MEDS: lisinopriL 20 MG TABLET PO SCH (08:36)
[2020-05-09 09:36] VITALS: BP 114/63
== END 2020-05-09 11:45 | disposition home health service (06) | DRG 872 ==
LOC: INPPIK 16:30
PROVIDERS: ADMIT Family Medicine; ATTEND Family Medicine

== ENCOUNTER 2020-08-02 20:07 | Inpatient (IN) ==
[2020-08-02] MEDS ORDERED: 0.9 % Sodium Chloride 1,000 ML IVC ONE ×2 (20:31→21:38)
[2020-08-02] MEDS ORDERED: 0.9 % Sodium Chloride 1,000 ML IVC SCH (20:45)
[2020-08-02 20:51] LABS: Basophils % 0.4 %; Eosinophils % 0.3 %; Hematocrit 44.8 % (37.5-50.1); Hemoglobin 15.6 g/dL (12.9-16.9); Immature Granulocytes % 0.4 % (0-4); Lymphocytes # 1.5 K/mcL (0.6-4.6); Lymphocytes % 15.4 %; Mean Corpuscular HGB Conc 34.8 g/dL (31.6-35.5); Mean Corpuscular Hemoglobin 30.2 pg (28.0-33.3); Mean Corpuscular Volume 86.8 fL (83.0-100.0); Mean Platelet Volume 11.3 fL (9.4-12.4); Monocytes # 0.9 K/mcL (0.0-1.3); Monocytes % 8.9 %; Neutrophils # 7.5 K/mcL (1.6-8.9); Platelet Count 203 K/mcL (140-400); Red Blood Count 5.16 M/mcL (4.19-5.50); Red Cell Distribution Width 12.9 % (11.5-14.5); Segmented Neutrophils % 74.6 %
[2020-08-02 21:10] LABS: Alanine Aminotransferase 12 Units/L (7-52); Albumin 3.8 g/dL (3.5-5.7); Albumin/Globulin Ratio 1.2 (1.1-2.2); Alkaline Phosphatase 65 Units/L (34-104); Aspartate Amino Transferase 16 Units/L (13-39); BUN/Creatinine Ratio 20 (6-26); Bilirubin,Direct 0.4 mg/dL (0.0-0.2); Bilirubin,Indirect 1.1 mg/dL (0.0-1.0); Bilirubin,Total 1.5 mg/dL (0.3-1.0); Blood Urea Nitrogen 27 mg/dL (8-23); Calcium 10.6 mg/dL (8.6-10.3); Carbon Dioxide 24 mEq/L (23-29); Chloride 107 mEq/L (98-107); Ethanol < 10 mg/dL (Less than 10); Globulin 3.2 g/dL (2.4-3.5); Glucose 116 mg/dL (70-105); Osmolality,Calculated 298 (280-300); Potassium 4.5 mEq/L (3.5-5.1); Sodium 141 mEq/L (136-145); eGFR For African Americans > 60 (> 60); eGFR For Non-African Americans 52 (> 60)
[2020-08-02 21:23] LABS: Thyroid Stimulating Hormone 0.374 mcIU/mL (0.340-5.600)
[2020-08-02] MEDS ORDERED: MOM Conc 10 ML UD.LIQ PO PRN (22:56)
[2020-08-02] MEDS ORDERED: Ondansetron ODT 4 MG TAB.RAPDIS SL PRN (22:56)
[2020-08-02] MEDS ORDERED: Naloxone 0.4 MG/ML INJ IVP PRN (22:56)
[2020-08-02] MEDS: 0.9 % Sodium Chloride 1,000 ML IVC SCH (23:06)
[2020-08-03 07:00] LABS: Bilirubin,Urine Moderate (Negative); Blood,Urine Negative (Negative); Clarity,Urine Slightly Cloudy (Clear); Color,Urine Dark Yellow (Yellow); Glucose,Urine (UA) Normal (Normal); Ketones,Urine Trace mg/dL (Negative); Leukocyte Esterase,Urine Negative (Negative); Nitrite,Urine Negative (Negative); Protein,Urine 30 mg/dL (Neg-Trace); Specific Gravity,Urine >= 1.030 (1.010-1.025); Urobilinogen,Urine Normal (Normal)
[2020-08-03 07:05] LABS: Mucus,Urine Many per lpf (None-Few)
[2020-08-03 07:07] LABS: Calcium Oxalate Crystals,Urine Present per hpf
[2020-08-03 07:08] LABS: Bacteria,Urine Moderate per hpf (None-Few); Granular Casts,Urine Few per lpf (None Seen)
[2020-08-03 07:09] LABS: RBC,Urine 0-3 per hpf (0-3); Squamous Epithelial Cell,Urine Few per hpf (None-Few); WBC,Urine 0-3 per hpf (0-3)
[2020-08-03 07:11] LABS: Hyaline Casts,Urine Moderate per lpf (None Seen)
[2020-08-03 08:23] LABS: BUN/Creatinine Ratio 23 (6-26); Blood Urea Nitrogen 27 mg/dL (8-23); Calcium 9.5 mg/dL (8.6-10.3); Carbon Dioxide 25 mEq/L (23-29); Chloride 110 mEq/L (98-107); Glucose 105 mg/dL (70-105); Osmolality,Calculated 295 (280-300); Potassium 4.3 mEq/L (3.5-5.1); Sodium 140 mEq/L (136-145); eGFR For African Americans > 60 (> 60); eGFR For Non-African Americans 58 (> 60)
[2020-08-03] MEDS: lisinopriL 20 MG TABLET PO SCH (09:12)
[2020-08-03] MEDS: 0.9 % Sodium Chloride 1,000 ML IVC SCH ×2 (09:26→14:10)
[2020-08-03] MEDS ORDERED: Haloperidol Lactate 5 MG/ML VIAL IVP ONE (14:28)
[2020-08-03] MEDS ORDERED: Haloperidol Lactate 5 MG/ML VIAL IVP PRN (15:09)
[2020-08-04] MEDS: lisinopriL 20 MG TABLET PO SCH (10:25)
[2020-08-04] MEDS: Melatonin 3 MG TABLET PO PRN (20:32)
[2020-08-05] MEDS: *HR* Enoxaparin 40 MG/0.4 ML SYRINGE SQ SCH (05:20)
[2020-08-05 06:31] LABS: Basophils # 0.1 K/mcL (0.0-0.2); Basophils % 0.8 %; Eosinophils # 0.2 K/mcL (0.0-0.6); Eosinophils % 2.1 %; Hemoglobin 13.3 g/dL (12.9-16.9); Immature Granulocytes % 1.2 % (0-4); Lymphocytes # 2.1 K/mcL (0.6-4.6); Lymphocytes % 28.7 %; Mean Corpuscular HGB Conc 34.1 g/dL (31.6-35.5); Mean Corpuscular Hemoglobin 29.6 pg (28.0-33.3); Mean Corpuscular Volume 86.7 fL (83.0-100.0); Mean Platelet Volume 11.7 fL (9.4-12.4); Monocytes # 0.8 K/mcL (0.0-1.3); Monocytes % 11.6 %; Platelet Count 202 K/mcL (140-400); Red Cell Distribution Width 12.6 % (11.5-14.5); Segmented Neutrophils % 55.6 %; White Blood Count 7.3 K/mcL (4.3-11.1)
[2020-08-05 06:45] LABS: BUN/Creatinine Ratio 17 (6-26); Blood Urea Nitrogen 20 mg/dL (8-23); Calcium 9.3 mg/dL (8.6-10.3); Carbon Dioxide 27 mEq/L (23-29); Chloride 106 mEq/L (98-107); Glucose 102 mg/dL (70-105); Osmolality,Calculated 287 (280-300); Potassium 4.5 mEq/L (3.5-5.1); Sodium 137 mEq/L (136-145); eGFR For African Americans > 60 (> 60); eGFR For Non-African Americans > 60 (> 60)
[2020-08-05] MEDS: lisinopriL 20 MG TABLET PO SCH (09:27)
[2020-08-05] MEDS: Melatonin 3 MG TABLET PO PRN (19:44)
[2020-08-06] MEDS: *HR* Enoxaparin 40 MG/0.4 ML SYRINGE SQ SCH (05:58)
[2020-08-06 08:16] LABS: Basophils # 0.1 K/mcL (0.0-0.2); Basophils % 1.1 %; Eosinophils # 0.2 K/mcL (0.0-0.6); Eosinophils % 2.9 %; Hematocrit 39.1 % (37.5-50.1); Hemoglobin 13.2 g/dL (12.9-16.9); Immature Granulocytes % 1.4 % (0-4); Lymphocytes % 29.9 %; Mean Corpuscular HGB Conc 33.8 g/dL (31.6-35.5); Mean Corpuscular Hemoglobin 29.7 pg (28.0-33.3); Mean Corpuscular Volume 88.1 fL (83.0-100.0); Mean Platelet Volume 12.5 fL (9.4-12.4); Monocytes # 0.7 K/mcL (0.0-1.3); Monocytes % 10.9 %; Neutrophils # 3.6 K/mcL (1.6-8.9); Platelet Count 168 K/mcL (140-400); Red Blood Count 4.44 M/mcL (4.19-5.50); Red Cell Distribution Width 12.7 % (11.5-14.5); Segmented Neutrophils % 53.8 %; White Blood Count 6.6 K/mcL (4.3-11.1)
[2020-08-06 08:36] LABS: BUN/Creatinine Ratio 13 (6-26); Blood Urea Nitrogen 14 mg/dL (8-23); Calcium 9.4 mg/dL (8.6-10.3); Carbon Dioxide 28 mEq/L (23-29); Chloride 105 mEq/L (98-107); Glucose 104 mg/dL (70-105); Osmolality,Calculated 285 (280-300); Potassium 4.4 mEq/L (3.5-5.1); Sodium 137 mEq/L (136-145); eGFR For African Americans > 60 (> 60); eGFR For Non-African Americans > 60 (> 60)
[2020-08-06] MEDS: lisinopriL 20 MG TABLET PO SCH (09:31)
[2020-08-06] MEDS: Haloperidol Lactate 5 MG/ML VIAL IM PRN (19:08)
[2020-08-06] MEDS: Melatonin 3 MG TABLET PO PRN (19:58)
[2020-08-07 08:18] LABS: BUN/Creatinine Ratio 12 (6-26); Blood Urea Nitrogen 13 mg/dL (8-23); Calcium 9.7 mg/dL (8.6-10.3); Carbon Dioxide 28 mEq/L (23-29); Chloride 106 mEq/L (98-107); Glucose 104 mg/dL (70-105); Osmolality,Calculated 288 (280-300); Potassium 4.3 mEq/L (3.5-5.1); Sodium 139 mEq/L (136-145); eGFR For African Americans > 60 (> 60); eGFR For Non-African Americans > 60 (> 60)
[2020-08-07 08:19] LABS: Basophils # 0.1 K/mcL (0.0-0.2); Basophils % 0.9 %; Eosinophils # 0.2 K/mcL (0.0-0.6); Eosinophils % 3.1 %; Hematocrit 39.3 % (37.5-50.1); Hemoglobin 13.5 g/dL (12.9-16.9); Immature Granulocytes % 1.2 % (0-4); Lymphocytes # 1.8 K/mcL (0.6-4.6); Lymphocytes % 30.9 %; Mean Corpuscular HGB Conc 34.4 g/dL (31.6-35.5); Mean Corpuscular Hemoglobin 30.1 pg (28.0-33.3); Mean Corpuscular Volume 87.5 fL (83.0-100.0); Monocytes # 0.6 K/mcL (0.0-1.3); Monocytes % 9.8 %; Neutrophils # 3.1 K/mcL (1.6-8.9); Platelet Count 219 K/mcL (140-400); Red Blood Count 4.49 M/mcL (4.19-5.50); Red Cell Distribution Width 12.6 % (11.5-14.5); Segmented Neutrophils % 54.1 %; White Blood Count 5.7 K/mcL (4.3-11.1)
[2020-08-07] MEDS: lisinopriL 20 MG TABLET PO SCH (08:57)
[2020-08-07] MEDS: *HR* Enoxaparin 40 MG/0.4 ML SYRINGE SQ SCH (09:00)
[2020-08-07] MEDS: Mag Hydrox/Al Hydrox/Simeth 30 ML UDC PO PRN (14:42)
[2020-08-07] MEDS: Haloperidol Lactate 5 MG/ML VIAL IM PRN (20:20)
[2020-08-07] MEDS: Acetaminophen 325 MG TABLET PO PRN (21:20)
[2020-08-07] MEDS: Melatonin 3 MG TABLET PO PRN (21:21)
[2020-08-07] MEDS: Ibuprofen 400 MG TABLET PO PRN (22:50)
[2020-08-08] MEDS: *HR* Enoxaparin 40 MG/0.4 ML SYRINGE SQ SCH (05:15)
[2020-08-08] MEDS: lisinopriL 20 MG TABLET PO SCH (08:35)
[2020-08-08] MEDS: Cyanocobalamin (B-12) 1,000 MCG TABLET PO SCH (08:36)
[2020-08-08] MEDS: Mag Hydrox/Al Hydrox/Simeth 30 ML UDC PO PRN ×2 (09:50→20:13)
[2020-08-08] MEDS: Acetaminophen 325 MG TABLET PO PRN (19:33)
[2020-08-08] MEDS: Melatonin 3 MG TABLET PO PRN ×2 (19:34→19:35)
[2020-08-08] MEDS: Haloperidol Lactate 5 MG/ML VIAL IM PRN (23:21)
[2020-08-09] MEDS ORDERED: Haloperidol Lactate 5 MG/ML VIAL IM ONE (03:01)
[2020-08-09] MEDS: Mag Hydrox/Al Hydrox/Simeth 30 ML UDC PO PRN (03:53)
[2020-08-09] MEDS: *HR* Enoxaparin 40 MG/0.4 ML SYRINGE SQ SCH (04:29)
[2020-08-09] MEDS: Acetaminophen 325 MG TABLET PO PRN ×2 (05:07→18:28)
[2020-08-09] MEDS: lisinopriL 20 MG TABLET PO SCH (07:53)
[2020-08-09] MEDS: Cyanocobalamin (B-12) 1,000 MCG TABLET PO SCH (07:53)
[2020-08-09] MEDS: Haloperidol Lactate 5 MG/ML VIAL IM PRN (10:31)
[2020-08-09] MEDS ORDERED: Haloperidol Lactate 5 MG/ML VIAL IVP PRN (11:38)
[2020-08-09] MEDS: Ibuprofen 400 MG TABLET PO PRN (15:35)
[2020-08-09] MEDS ORDERED: *HR* LORazepam 1 MG TABLET PO ONE (18:04)
[2020-08-09] MEDS: Melatonin 3 MG TABLET PO PRN ×2 (19:16)
[2020-08-09] MEDS ORDERED: QUEtiapine Fumarate 25 MG TABLET PO SCH (21:00)
[2020-08-10] MEDS ORDERED: QUEtiapine Fumarate 25 MG TABLET PO ONE (01:23)
[2020-08-10] MEDS: *HR* Enoxaparin 40 MG/0.4 ML SYRINGE SQ SCH (05:50)
[2020-08-10 07:15] LABS: Basophils % 0.7 %; Eosinophils # 0.1 K/mcL (0.0-0.6); Eosinophils % 2.2 %; Hematocrit 40.1 % (37.5-50.1); Hemoglobin 13.4 g/dL (12.9-16.9); Lymphocytes # 1.6 K/mcL (0.6-4.6); Lymphocytes % 27.9 %; Mean Corpuscular HGB Conc 33.4 g/dL (31.6-35.5); Mean Corpuscular Hemoglobin 29.3 pg (28.0-33.3); Mean Corpuscular Volume 87.7 fL (83.0-100.0); Mean Platelet Volume 11.6 fL (9.4-12.4); Monocytes # 0.6 K/mcL (0.0-1.3); Monocytes % 9.8 %; Neutrophils # 3.4 K/mcL (1.6-8.9); Platelet Count 252 K/mcL (140-400); Red Blood Count 4.57 M/mcL (4.19-5.50); Red Cell Distribution Width 12.8 % (11.5-14.5); Segmented Neutrophils % 58.4 %; White Blood Count 5.8 K/mcL (4.3-11.1)
[2020-08-10 07:30] LABS: BUN/Creatinine Ratio 14 (6-26); Blood Urea Nitrogen 19 mg/dL (8-23); Calcium 9.8 mg/dL (8.6-10.3); Carbon Dioxide 29 mEq/L (23-29); Chloride 105 mEq/L (98-107); Glucose 103 mg/dL (70-105); Osmolality,Calculated 289 (280-300); Potassium 4.9 mEq/L (3.5-5.1); Sodium 138 mEq/L (136-145); eGFR For African Americans > 60 (> 60); eGFR For Non-African Americans 52 (> 60)
[2020-08-10] MEDS: lisinopriL 20 MG TABLET PO SCH (08:35)
[2020-08-10] MEDS: Cyanocobalamin (B-12) 1,000 MCG TABLET PO SCH (08:36)
[2020-08-10] MEDS: QUEtiapine Fumarate 25 MG TABLET PO SCH (19:40)
[2020-08-10] MEDS: Melatonin 3 MG TABLET PO PRN ×2 (22:09→22:10)
[2020-08-11] MEDS: *HR* Enoxaparin 40 MG/0.4 ML SYRINGE SQ SCH (06:00)
[2020-08-11 07:08] LABS: Basophils # 0.1 K/mcL (0.0-0.2); Eosinophils # 0.1 K/mcL (0.0-0.6); Eosinophils % 1.7 %; Hematocrit 43.4 % (37.5-50.1); Hemoglobin 14.7 g/dL (12.9-16.9); Lymphocytes # 2.1 K/mcL (0.6-4.6); Lymphocytes % 30.2 %; Mean Corpuscular HGB Conc 33.9 g/dL (31.6-35.5); Mean Corpuscular Hemoglobin 29.6 pg (28.0-33.3); Mean Corpuscular Volume 87.5 fL (83.0-100.0); Mean Platelet Volume 11.6 fL (9.4-12.4); Monocytes # 0.6 K/mcL (0.0-1.3); Platelet Count 288 K/mcL (140-400); Red Blood Count 4.96 M/mcL (4.19-5.50); Red Cell Distribution Width 12.8 % (11.5-14.5); Segmented Neutrophils % 57.1 %; White Blood Count 7.1 K/mcL (4.3-11.1)
[2020-08-11 07:21] LABS: BUN/Creatinine Ratio 16 (6-26); Blood Urea Nitrogen 21 mg/dL (8-23); Calcium 9.9 mg/dL (8.6-10.3); Carbon Dioxide 27 mEq/L (23-29); Chloride 104 mEq/L (98-107); Glucose 97 mg/dL (70-105); Osmolality,Calculated 285 (280-300); Potassium 4.7 mEq/L (3.5-5.1); Sodium 136 mEq/L (136-145); eGFR For African Americans > 60 (> 60); eGFR For Non-African Americans 51 (> 60)
[2020-08-11] MEDS ORDERED: haloperidoL 1 MG TABLET PO PRN (08:17)
[2020-08-11] MEDS: lisinopriL 20 MG TABLET PO SCH (09:03)
[2020-08-11] MEDS: Cyanocobalamin (B-12) 1,000 MCG TABLET PO SCH (09:03)
[2020-08-11] MEDS: Melatonin 3 MG TABLET PO PRN ×2 (19:59)
[2020-08-11] MEDS: QUEtiapine Fumarate 25 MG TABLET PO SCH (20:00)
[2020-08-11] MEDS: Acetaminophen 325 MG TABLET PO PRN (20:38)
[2020-08-12] MEDS: *HR* Enoxaparin 40 MG/0.4 ML SYRINGE SQ SCH (05:10)
[2020-08-12] MEDS: Cyanocobalamin (B-12) 1,000 MCG TABLET PO SCH (10:27)
[2020-08-12] MEDS: lisinopriL 20 MG TABLET PO SCH (10:28)
[2020-08-12] MEDS: QUEtiapine Fumarate 25 MG TABLET PO SCH ×2 (11:06→22:38)
[2020-08-12] MEDS: Mag Hydrox/Al Hydrox/Simeth 30 ML UDC PO PRN (19:09)
[2020-08-13] MEDS: *HR* Enoxaparin 40 MG/0.4 ML SYRINGE SQ SCH (05:45)
[2020-08-13] MEDS: QUEtiapine Fumarate 25 MG TABLET PO SCH ×2 (09:35→20:10)
[2020-08-13] MEDS: Cyanocobalamin (B-12) 1,000 MCG TABLET PO SCH (09:36)
[2020-08-13] MEDS: lisinopriL 20 MG TABLET PO SCH (09:37)
[2020-08-14] MEDS: Ibuprofen 400 MG TABLET PO PRN ×2 (01:11→20:20)
[2020-08-14] MEDS: *HR* Enoxaparin 40 MG/0.4 ML SYRINGE SQ SCH (06:25)
[2020-08-14] MEDS: Cyanocobalamin (B-12) 1,000 MCG TABLET PO SCH (08:20)
[2020-08-14] MEDS: lisinopriL 20 MG TABLET PO SCH (08:21)
[2020-08-14] MEDS: QUEtiapine Fumarate 25 MG TABLET PO SCH ×2 (08:21→20:21)
[2020-08-15] MEDS: *HR* Enoxaparin 40 MG/0.4 ML SYRINGE SQ SCH (05:01)
[2020-08-15 06:16] VITALS: BP 129/82
[2020-08-15] MEDS: QUEtiapine Fumarate 25 MG TABLET PO SCH (09:18)
[2020-08-15] MEDS: lisinopriL 20 MG TABLET PO SCH (09:18)
[2020-08-15] MEDS: Cyanocobalamin (B-12) 1,000 MCG TABLET PO SCH (09:18)
== END 2020-08-15 10:34 | DRG 641 ==
LOC: EMEROOPIK 20:07 → INPPIK 20:07
PROVIDERS: ADMIT Family Medicine; ATTEND Family Medicine